=== PATIENT | male | born 1945 | race African-American/Black ===

== ENCOUNTER 2021-04-05 10:50 | Emergency (ER) | payer BC ==
[2021-04-05 11:10] VITALS: BP 134/92; PULSE 93; TEMP 98.7; BMI 22.7
[2021-04-05] MEDS ORDERED: ALBUTEROL SO4 2.5/IPRATROPIUM 0.5 INH SOL 3 ML VIAL.NEB. NEB ONE ×2 (11:22→11:30)
[2021-04-05] MEDS ORDERED: FAMOTIDINE 10 MG TABLET PO ONE (11:22)
[2021-04-05] MEDS ORDERED: FAMOTIDINE 20 MG TABLET ONE (11:29)
== END 2021-04-05 13:05 | disposition home or self-care (01) ==
LOC: FER 10:50
PROC: 3E0F7GC Introduction of Other Therapeutic Substance into Respiratory Tract, Via Natural or Artificial Opening (ICD-10-PCS; principal; 2021-04-05)
DX: R05 Cough (principal)
CPT/HCPCS: 71046-TC-FY; 99284-25; C9803; U0003; U0005